=== PATIENT | male | born 1990 | race Caucasian/White ===

== ENCOUNTER 2024-04-17 08:45 | Emergency (ER) | payer OTHER, SELFPAY ==
[2024-04-17 08:57] VITALS: BP 148/98; PULSE 88; RESP 16; TEMP 36.8; O2SAT 97
[2024-04-17 09:00] VITALS: PULSE 88; RESP 16; O2SAT 97
--- NOTE | 2024-04-17 09:09 | ED.URI ---
HPI - URI/Sore Throat General Chief Complaint: Upper Respiratory Infection Stated Complaint: Cough/Congestion Time Seen by Provider: 04/17/24 09:09 Source: patient Mode of arrival: ambulatory Limitations: no limitations History of Present Illness HPI Narrative: 33-year-old male presents with complaint of cough, chest congestion For 9 days. Taking [id number] medications to treat symptoms. Patient states cough is getting worse with shortness of breath with exertion. Had to call off work yesterday and today. Afebrile. patient is a current everyday smoker. Smokes cigarettes. Patient concerned he has pneumonia. All systems reviewed and negative except as noted above. Related Data Allergies Allergy/AdvReac Type Severity Reaction Status Date / Time No Known Allergies Allergy Verified 04/17/24 08:50 Review of Systems Review of Systems: CONSTITUTIONAL: Denies fever, chills, or sweats. Reports fatigue. EYES: Denies visual changes, redness, or discharge. ENT: Denies rhinorrhea, congestion, sore throat, or otalgia. CARDIOVASCULAR: Denies chest pain, palpitations, or edema. RESPIRATORY: Reports cough and dyspnea with exertion. GASTROINTESTINAL: Denies abdominal pain, nausea, vomiting, or diarrhea. GENITOURINARY: Denies dysuria or hematuria. SKIN: Denies rash or itching. MUSCULOSKELETAL: Denies back pain, joint pain, or myalgia. NEUROLOGIC: Denies headache, numbness, or weakness. PSYCHIATRIC: Denies anxiety or depression. All other systems reviewed are negative, except as documented in HPI. PMFSH Comments At time of signature, agree with nursing past medical, surgical, social and family history. There is no relevant family history pertinent to the presenting complaint. Exam Narrative: GENERAL: This is a well-nourished, well-developed patient, in no apparent distress. HEAD: normocephalic, atraumatic. EYES: PERRL. Sclera clear/white. Vision is grossly intact. EARS: External ears normal, auditory canals clear and without drainage, TMs normal without perforation. Hearing grossly intact. NOSE: External nose normal with clear nasal drainage, mild erythema THROAT: Mucous membranes moist, clear postnasal drainage NECK: Neck supple, non-tender without lymphadenopathy, masses or thyromegaly. CARDIOVASCULAR: Regular rate and rhythm without murmurs, gallops, or rubs. RESPIRATORY: Clear to auscultation. Breath sounds equal bilaterally. No wheezes, rales, or rhonchi. SKIN: warm, Dry, intact with no suspicious lesions or rash, good texture and turgor. NEURO: awake, alert, and oriented to person, place and time. There were no obvious focal neurologic abnormalities. EXTREMITIES: No joint tenderness, effusion, or edema noted. Course Course Level of Care: Express Care Visit Vital Signs Vital signs: Vital Signs Temperature 36.8 C 04/17/24 08:57 Pulse Rate 88 04/17/24 08:57 Respiratory Rate 16 04/17/24 08:57 Blood Pressure 148/98 H 04/17/24 08:57 Pulse Oximetry 97 04/17/24 08:57 Oxygen Delivery Room Air 04/17/24 08:57 Temperature 36.8 C 04/17/24 08:57 Pulse Rate 88 04/17/24 08:57 Respiratory Rate 16 04/17/24 08:57 Blood Pressure 148/98 H 04/17/24 08:57 Pulse Oximetry 97 04/17/24 08:57 Oxygen Delivery Room Air 04/17/24 08:57 reviewed MDM - URI/Sore Throat MDM Narrative Medical decision making narrative: patient is well-appearing, nontoxic. Lungs clear to auscultation. Will treat patient with antibiotic due to symptoms duration, patient's symptoms. Please be advised this is a medical document. It is intended for [id number] communication. It is written in medical language and may contain unfamiliar abbreviations or verbiage. Medical documents are intended to carry relevant information, facts as evident, and the clinical opinion of the practitioner at the time of the encounter. This report may have been done utilizing a voice recognition system. Attempts have been made to correct errors. However, there may be uncorrected grammatical, spelling, and recognition errors present. The file time of this note does not necessarily represent the time of service. Differential Diagnosis Differential diagnosis: Likely upper respiratory infection, sinusitis, viral infection and bronchitis Discharge Plan Discharge Clinical Impression: Acute bronchitis Qualifiers: Bronchitis organism: unspecified organism Qualified Code(s): J20.9 - Acute bronchitis, unspecified Patient Disposition: Home, Self-Care Condition: Stable Instructions: Antibiotic Form, Acute Bronchitis (ED) Additional Instructions: take medications as prescribed. Purchase [id number] Mucinex and take as directed on packaging. place cool mist humidifier in bedroom where you sleep. Follow-up with your doctor if symptoms are not improving. Patient Language: Slovak Prescriptions: New azithromycin 250 mg tablet See Rx Instructions .ROUTE .COMPLEX Qty: 6 0RF Rx Instructions: For 250 mg dose pack: take 500 mg today (day 1), then 250 mg for 4 days (days 2-5) benzonatate 200 mg capsule 200 mg PO TID PRN (Reason: cough) Qty: 20 0RF prednisone 20 mg tablet 40 mg PO DAILY 5 Days Qty: 10 0RF Follow-up/Referrals: PHYSICIAN,CAFE OR RESTAURANT MANAGER [Primary Care Provider] - Stand Alone Forms: Work/School Release IP Time of Disposition: 09:26
== END 2024-04-17 09:30 | disposition home or self-care (01) ==
PROVIDERS: Emergency Provider Nurse Practitioner Family
DX: J20.9 Acute bronchitis, unspecified (principal)
CPT/HCPCS: 99213; G0463

== ENCOUNTER 2024-12-12 02:25 | Emergency (ER) | payer BC, SELFPAY ==
[2024-12-12 02:26] VITALS: BP 138/81; PULSE 67; RESP 18; TEMP 36.6; O2SAT 100
--- NOTE | 2024-12-12 03:58 | ED_ITS ---
HPI - Ear Problem General Chief complaint: Ear Stated complaint: left ear infection/pain Time Seen by Provider: 12/12/24 03:53 Source: patient Mode of arrival: ambulatory Limitations: no limitations History of Present Illness HPI Narrative: This is a 34-year-old male with no significant past medical history presents the ED for left ear pain. Patient states that about 24 hours ago he has onset left ear pain with drainage. He tried Tylenol and ibuprofen with relief. He states that it began draining even more this evening prompting him to come to the ED for further evaluation. Denies fevers, chills. Related Data Allergies Allergy/AdvReac Type Severity Reaction Status Date / Time No Known Allergies Allergy Verified 12/12/24 04:09 Review of Systems Review of Systems: Gen.: Denies fevers or chills Eyes: As per HPI ENT: Denies congestion Respiratory: Denies shortness of breath or cough CV: Denies chest pain or palpitations GI: Denies abdominal pain nausea, emesis or diarrhea denies burning, urgency, frequency or hematuria Musculoskeletal: Denies back pain or muscle pain Neuro: Denies numbness, tingling, weakness or focal weakness Skin: Denies rash Except as documented, all other systems reviewed and negative Exam Narrative: APPEARANCE: No acute distress, nontoxic, resting in bed HEENT: Normocephalic, atraumatic, OMM. Erythema and drainage to the left TM. No pain with movement of the left external ear RESPIRATORY: No respiratory distress CARDIOVASCULAR: Appears well perfused ABDOMINAL: Nondistended MUSCULOSKELETAl: Moves all extremities. No obvious deformities NEURO: Awake and alert. SKIN:: Warm, dry. No rashes lesions or abrasions PSYCHIATRIC: Normal affect/mood, Course Vital Signs Vital signs: Vital Signs Temperature 97.9 F 12/12/24 02:26 Pulse Rate 67 12/12/24 02:26 Respiratory Rate 18 12/12/24 02:26 Blood Pressure 138/81 12/12/24 02:26 Pulse Oximetry 100 12/12/24 02:26 Oxygen Delivery Room Air 12/12/24 02:26 Temperature 97.9 F 12/12/24 02:26 Pulse Rate 84 12/12/24 03:59 Respiratory Rate 22 H 12/12/24 03:59 Blood Pressure 142/69 H 12/12/24 03:59 Pulse Oximetry 95 12/12/24 03:59 Oxygen Delivery Room Air 12/12/24 02:26 Medical Decision Making MDM Narrative Medical decision making narrative: 34-year-old male presenting for left ear pain. On initial evaluation patient was no acute distress, afebrile, hemodynamically stable. He did have a small amount of drainage from the left ear with noted left TM bulging erythema. Most consistent with acute otitis media. He was given a prescription for Augmentin and given 1st dose here. He was educated on Tylenol and ibuprofen use. He was advised follow-up with his PCP in the next week for re-evaluation if needed. Patient was agreeable to this plan. Given strict return precautions. Differential Diagnosis Differential Diagnosis: Otitis media, otitis externa, viral syndrome Vital Signs Vital Signs: Vital Signs Temperature 97.9 F 12/12/24 02:26 Pulse Rate 67 12/12/24 02:26 Respiratory Rate 18 12/12/24 02:26 Blood Pressure 138/81 12/12/24 02:26 Pulse Oximetry 100 12/12/24 02:26 Oxygen Delivery Room Air 12/12/24 02:26 Temperature 97.9 F 12/12/24 02:26 Pulse Rate 84 12/12/24 03:59 Respiratory Rate 22 H 12/12/24 03:59 Blood Pressure 142/69 H 12/12/24 03:59 Pulse Oximetry 95 12/12/24 03:59 Oxygen Delivery Room Air 12/12/24 02:26 Discharge Plan Discharge Clinical Impression: Otitis media Qualifiers: Otitis media type: suppurative Chronicity: acute Laterality: left Recurrence: non-recurrent Spontaneous tympanic membrane rupture: without spontaneous rupture Qualified Code(s): H66.002 - Acute suppurative otitis media without spontaneous rupture of ear drum, left ear Patient Disposition: Home Condition: Stable Instructions: Antibiotic Form Additional Instructions: Take Augmentin as prescribed. He may take Tylenol and ibuprofen for the pain. Follow-up with your PCP in the next week for re-evaluation. Return to the ED fo r any new or worsening symptoms. Patient Language: Nepali Prescriptions: New amoxicillin-pot clavulanate 875-125 mg tablet 1 tablet PO Q12H Qty: 10 0RF No Action azithromycin 250 mg tablet See Rx Instructions .ROUTE .COMPLEX Qty: 6 0RF Rx Instructions: For 250 mg dose pack: take 500 mg today (day 1), then 250 mg for 4 days (days 2-5) benzonatate 200 mg capsule 200 mg PO TID PRN (Reason: cough) Qty: 20 0RF prednisone 20 mg tablet 40 mg PO DAILY 5 Days Qty: 10 0RF Follow-up/Referrals: PHYSICIAN,STAVE CUTTING SUPERVISOR [Primary Care Provider, Internal Medicine] Stand Alone Forms: Work/School Release IP
[2024-12-12 03:59] VITALS: BP 142/69; PULSE 84; RESP 22; O2SAT 95
== END 2024-12-12 04:25 | disposition home or self-care (01) ==
LOC: ANHED 04:07
PROVIDERS: Emergency Provider Student in an Organized Health Care Education/Training Program
DX: H66.002 Acute suppurative otitis media without spontaneous rupture of ear drum, left ear (principal)
CPT/HCPCS: 99283; A9270